=== PATIENT | female | born 2000 | race Caucasian/White ===

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

== ENCOUNTER → 2024-03-21 | Outpatient (CLI) | payer BC | LOC: M WUC 11:10 | PROVIDERS: ATTEND Nurse Practitioner Family | DX: M25.572 Pain in left ankle and joints of left foot (principal) ==